=== PATIENT | male | born 1960 | race Caucasian/White ===

== ENCOUNTER 2018-08-10 14:38 | Emergency (ER) | payer SELFPAY ==
[2018-08-10 15:06] VITALS: BP 125/60
[2018-08-10] MEDS ORDERED: Tetan/Diph/Pertus SYR(Tdap)* 0.5 ML SYR(BOOSTRIX) use SYR IM ONE (15:13)
--- NOTE | 2018-08-10 15:14 | UC ---
Bite Injury/Animal HPI - HPI Summary HPI Summary: dog bite today on R hand w/ some bleeding and pain. - History of Current Complaint Chief Complaint: UCBiteInjury Stated Complaint: DOG BITE Time Seen by Provider: 08/10/18 14:44 Hx Obtained From: Patient Pain Intensity: 1 Pain Scale Used: 0-10 Numeric - Allergies/Home Medications Allergies/Adverse Reactions: Allergies Allergy/AdvReac Type Severity Reaction Status Date / Time No Known Allergies Allergy Verified 08/10/18 15:06 PMH/Surg Hx/FS Hx/Imm Hx Previously Healthy: Yes - Surgical History Surgical History: None - Social History Alcohol Use: Daily Substance Use Type: None Smoking Status (MU): Never Smoked Tobacco Review of Systems All Other Systems Reviewed And Are Negative: Yes Constitutional: Positive: Negative Skin: Positive: Other - bite on R hand Physical Exam Triage Information Reviewed: Yes Appearance: Well-Appearing Vital Signs: Initial Vital Signs Temp 98.5 F 08/10/18 14:59 Pulse 56 08/10/18 14:59 Resp 16 08/10/18 14:59 BP 125/60 08/10/18 14:59 Pulse Ox 98 08/10/18 14:59 Vital Signs Reviewed: Yes Musculoskeletal Exam: Other - R hand has FROM w/ no obvious swelling or joint involvement. Neurological: Positive: Alert Skin: Positive: Other - one puncture wound in R lateral aspect, another puncture wound at base of 3rd digit and an abrasion on dorsal aspect of 3rd digit. Bite Injury Course/Dx - Course Course Of Treatment: Dog bite producing 2x puncture wounds and an abrasion on R hand. No joint involvement and bleeding was able to be stopped. We cleaned and dressed wounds. although pt does not know dog it appears to be a known dog to a person in the area as dog was on leash. we discussed case w/ [facility] dept. they will call pt. will start on augmentin. - Differential Dx/Diagnosis Provider Diagnosis: Puncture wound, Dog bite of extremity, Hand pain, right Discharge - Sign-Out/Discharge Documenting (check all that apply): Patient Departure All imaging exams completed and their final reports reviewed: No Studies - Discharge Plan Condition: Good Disposition: HOME Prescriptions: Amoxicillin/Clavulanate TAB* [Augmentin TAB 875*] 875 mg PO BID 7 Days #14 tab Patient Education Materials: Animal Bite (ED) Referrals: No Primary Care Phys,NOPCP [Primary Care Provider] - Additional Instructions: we discussed case with [facility] dept. and they will be in contact. - Billing Disposition and Condition Condition: GOOD Disposition: Home
== END 2018-08-10 15:40 | disposition home or self-care (01) ==
LOC: UCEAST 14:38
DX: S61.451A Open bite of right hand, initial encounter (principal); W54.0XXA Bitten by dog, initial encounter; Y92.9 Unspecified place or not applicable
CPT/HCPCS: 90715; 99212; G0463

== ENCOUNTER 2018-08-21 13:54 | Emergency (ER) | payer SELFPAY ==
[2018-08-21] MEDS ORDERED: Rabies VIRUS VACCINE (Imovax)* 2.5 UNIT/ML 1 ML IM ONE (14:05)
[2018-08-21] MEDS ORDERED: Rabies Immune Globulin/PF 1ML* 1 ML/300 UNITS VIAL IM ONE (14:05)
--- NOTE | 2018-08-21 14:08 | UC ---
Bite Injury/Animal HPI - HPI Summary HPI Summary: 58 yo male sustained a dog bite to right hand on 08/10. He was seen that day and treated with Augmentin. Since that time, the health department has recommended he undergo rabies vaccinations. He has had no symptoms and hand is significantly improved. - History of Current Complaint Stated Complaint: RABIES EXP Time Seen by Provider: 08/21/18 14:08 Hx Obtained From: Patient Severity Currently: None - Allergies/Home Medications Allergies/Adverse Reactions: Allergies Allergy/AdvReac Type Severity Reaction Status Date / Time No Known Allergies Allergy Verified 08/21/18 14:05 Home Medications: Home Medications NK [No Home Medications Reported] 08/21/18 [History Confirmed 08/21/18] PMH/Surg Hx/FS Hx/Imm Hx - Additional Past Medical History Additional PMH: None - Surgical History Surgical History: None - Family History Known Family History: Positive: None - Social History Lives: With Family Alcohol Use: Daily Substance Use Type: None Smoking Status (MU): Never Smoked Tobacco Review of Systems All Other Systems Reviewed And Are Negative: Yes Constitutional: Positive: Negative Skin: Positive: Other - Dog bite hand Respiratory: Positive: Negative Cardiovascular: Positive: Negative Neurovascular: Positive: Negative Neurological: Positive: Negative Psychological: Positive: Negative Physical Exam - Summary Physical Exam Summary: GENERAL: NAD. WDWN. No pain distress. SKIN: Healing puncture wound to ulnar aspect of right hand. No streaking, bleeding, or drainage. No erythema. NECK: Supple. Nontender. No lymphadenopathy. CHEST: No accessory muscle use. Breathing comfortably and in no distress. CV: Pulses intact. Cap refill <2seconds NEURO: Alert. PSYCH: Age appropriate behavior. Triage Information Reviewed: Yes Vital Signs: Vital Signs: Temp Pulse Resp BP Pulse Ox 99 F 55 18 125/85 100 08/21/18 14:07 08/21/18 14:07 08/21/18 14:07 08/21/18 14:07 08/21/18 14:07 Vital Signs Reviewed: Yes Bite Injury Course/Dx - Course Course Of Treatment: 4.6mL of RIG and rabies vaccine given today. 1mL was administered around the hand puncture wound. Pt was already treated with Augmentin and bite site appears to be well healed/healing. tdap was updated last week - Differential Dx/Diagnosis Provider Diagnosis: Dog bite, Need for rabies vaccination Discharge - Sign-Out/Discharge Documenting (check all that apply): Patient Departure All imaging exams completed and their final reports reviewed: No Studies - Discharge Plan Condition: Stable Disposition: HOME Patient Education Materials: Rabies Vaccine (By injection), Rabies Immune Globulin (By injection), Rabies (ED) Referrals: No Primary Care Phys,NOPCP [Primary Care Provider] - Additional Instructions: If you develop a fever, shortness of breath, chest pain, new or worsening symptoms - please call your PCP or go to the ED. Please follow up with the health department - Billing Disposition and Condition Condition: STABLE Disposition: Home
[2018-08-21 14:14] VITALS: BP 125/85
== END 2018-08-21 14:50 | disposition home or self-care (01) ==
LOC: UCEAST 13:54
DX: Z23 Encounter for immunization (principal)
CPT/HCPCS: 90375; 90471; 96372; 99211; G0463